=== PATIENT | male | born 1965 ===

== ENCOUNTER 2017-11-16 08:09 | Emergency (ER) | payer MEDICAID ==
[2017-11-16 08:45] VITALS: RESP 18; O2SAT 98
[2017-11-16] MEDS ORDERED: Albuterol 0.083% Inhal Sol (2.5 mg/3 mL) UD IH STA (09:23)
--- NOTE | 2017-11-16 09:35 | ED PDOC ---
HPI: CCC, URI, Sore Throat Chief Complaint (Nursing): Flu-like Symptoms Chief Complaint (Provider): Flu-like symptoms History Per: Patient History/Exam Limitations: no limitations Onset/Duration Of Symptoms: Days (x1 month) Current Symptoms Are (Timing): Still Present Associated Symptoms: Fever, Chills, Cough, Nasal Congestion (and chest congestion), Other (body aches) Ear Symptoms: Bilateral: None Additional Complaint(s): Alfa Leyva is a 52 year old male, with no significant past medical history, who presents to the emergency department complaining of cough, sneezing, nose and chest congestion onset for x1 month. Patient also reports fever, chills, and body aches onset for x2 days. Patient was prescribed Promethazine but with no improvement of symptoms. He denies any other medical complaints. PMD: None provided. Past Medical History Reviewed: Historical Data, Nursing Documentation, Vital Signs Vital Signs: Last Vital Signs Temp 97 F L 11/16/17 10:41 Pulse 78 11/16/17 10:41 Resp 18 11/16/17 10:41 BP 110/78 11/16/17 10:41 Pulse Ox 98 11/16/17 10:41 - Medical History PMH: No Chronic Diseases - Surgical History Surgical History: No Surg Hx - Family History Family History: States: Unknown Family Hx - Social History Current smoker - smoking cessation education provided: No Alcohol: None Drugs: Denies - Home Medications Home Medications: Ambulatory Orders Medication Instructions Recorded Albuterol HFA [Ventolin HFA 90 2 puff IH Q4 #1 puff 11/16/17 mcg/actuation (8 g)] Azithromycin 250 mg PO DAILY #4 tab 11/16/17 Guaifenesin/Dextromethorphan 10 ml PO Q8 #1 bottle 11/16/17 [Robitussin Cough-Chest Dm Liq] - Allergies Allergies/Adverse Reactions: Allergies Allergy/AdvReac Type Severity Reaction Status Date / Time No Known Allergies Allergy Verified 11/16/17 08:42 Review of Systems ROS Statement: Except As Marked, All Systems Reviewed And Found Negative Constitutional: Positive for: Fever, Chills, Other (body aches) ENT: Positive for: Nose Congestion (and chest congestion) Respiratory: Positive for: Cough, Other (sneeze) Physical Exam - Reviewed Nursing Documentation Reviewed: Yes Vital Signs Reviewed: Yes - Physical Exam Appears: Positive for: Non-toxic Head Exam: Positive for: ATRAUMATIC, NORMAL INSPECTION, NORMOCEPHALIC Skin: Positive for: Normal Color, Warm, Dry Eye Exam: Positive for: Normal appearance, EOMI, PERRL ENT: Positive for: Nasal Congestion Neck: Positive for: Painless ROM, Supple Cardiovascular/Chest: Positive for: Regular Rate, Rhythm. Negative for: Murmur Respiratory: Positive for: Wheezing (upper respiratory wheezing. Otherwise lungs clear). Negative for: Respiratory Distress Gastrointestinal/Abdominal: Positive for: Normal Exam, Soft. Negative for: Tenderness, Guarding, Rebound Back: Positive for: Normal Inspection. Negative for: L CVA Tenderness, R CVA Tenderness, Vertebral Tenderness Extremity: Positive for: Normal ROM. Negative for: Pedal Edema, Deformity, Swelling Neurologic/Psych: Positive for: Alert, Oriented - ECG O2 Sat by Pulse Oximetry: 98 (RA) Pulse Ox Interpretation: Normal Medical Decision Making Medical Decision Making: Initial Impression: URI, Bronchitis vs Influenza vs PNA Initial Plan: --Chest two views (PA/LAT) [RAD] --Albuterol 0.083% 2.5 mg IH --Peak flow pre/post Tx --reevaluation Patient's CXR with Left sided infiltrate. Patient treated with Azithromycin 500mg PO. Patient will follow up with his primary care doctor. He was advised to return to the ED if symptoms worsen or any other concern. Scribe Attestation: Documented by Seymour Griffith, acting as a scribe for Usman Angelo MD Provider Scribe Attestation: All medical record entries made by the Scribe were at my direction and personally dictated by me. I have reviewed the chart and agree that the record accurately reflects my personal performance of the history, physical exam, medical decision making, and the department course for this patient. I have also personally directed, reviewed, and agree with the discharge instructions and disposition. Disposition - Clinical Impression Clinical Impression: Pneumonia - Patient ED Disposition Is Patient to be Admitted: No - Disposition Referrals: Courtney Gruber, [Non-Staff] - Disposition: Routine/Home Disposition Time: 10:30 Condition: IMPROVED Additional Instructions: Mr Leyva, thank you for letting us take care of you today. Your provider was Dr. Angelo. You were treated for Pneumonia. The emergency medical care you received today was directed at your acute symptoms. If you were prescribed any medication, please fill it and take as directed. It may take several days for your symptoms to resolve. Return to the Emergency Department if your symptoms worsen, do not improve, or if you have any other problems. Please contact your doctor or call one of the physicians/clinics you have been referred to that are listed on the Patient Visit Information form that is included in your discharge packet. Bring any paperwork you were given at discharge with you along with any medications you are taking to your follow up visit. Our treatment cannot replace ongoing medical care by a primary care provider (PCP) outside of the emergency department. Thank you for allowing the [facility] team to be part of your care today. If you had an X-Ray or CT scan: A Radiologist will review the ED reading if any change in treatment is needed we will contact you. If you had a blood, urine, or wound culture: It will take several days for the results, if any change in treatment is needed we will contact you. If you had an STI test: It will take 48 hours for the results. Please call after 1 week if you have not heard back. Prescriptions: Albuterol HFA [Ventolin HFA 90 mcg/actuation (8 g)] 2 puff IH Q4 #1 puff Azithromycin 250 mg PO DAILY #4 tab Guaifenesin/Dextromethorphan [Robitussin Cough-Chest Dm Liq] 10 ml PO Q8 #1 bottle Forms: [employer] (Danish), [employer] ED School/Work Excuse Print Language: MONGOLIAN
[2017-11-16] MEDS ORDERED: Albuterol-Ipratrop 3 mg / 0.5 (3 ml) UD ONE (09:38)
[2017-11-16 10:43] VITALS: BP 110/78; PULSE 78; TEMP 97
--- NOTE | 2017-11-16 13:06 | RAD ---
HISTORY: Cough/pneumonia COMPARISON: No prior. TECHNIQUE: Chest PA and lateral FINDINGS: LUNGS: No discrete infiltrates. Incidental finding(s): Calcified granuloma. Hyperinflation, manifestations of COPD. PLEURA: No significant pleural effusion identified. No pneumothorax apparent. CARDIOVASCULAR: No radiographic findings to suggest acute or significant cardiovascular disease. OSSEOUS STRUCTURES: No significant abnormalities. VISUALIZED UPPER ABDOMEN: Normal. OTHER FINDINGS: None. IMPRESSION: No active disease.
== END 2017-11-16 10:43 | disposition home or self-care (01) ==
LOC: H.ER 08:09
DX: J18.9 Pneumonia, unspecified organism (principal)